=== PATIENT | male | born 1980 | race Caucasian/White ===

== ENCOUNTER → 2019-04-18 | Outpatient (CLI) | payer SELFPAY ==
--- NOTE | 2019-04-18 15:15 | REP ---
Clinical: Cervicalgia Technique: AP, lateral, swimmers the use of the cervical spine. Findings: Straightening of normal lordosis is appreciated along with minimal endplate sclerosis and disc space narrowing at C6-7. Vertebral bodies are intact and there is no evidence for acute fracture / compression injury or subluxation. Impression: Mild degenerative changes. If the patient remains symptomatic consider MRI for further investigation. Electronically Signed by Oliver Noonan MD 04/18/2019 03:06 P
== END ==
LOC: M RAD 14:33
PROVIDERS: ATTEND Internal Medicine
DX: M50.323 Other cervical disc degeneration at C6-C7 level (principal)